=== PATIENT | female | born 1930 | race Caucasian/White ===

== ENCOUNTER 2017-12-17 14:46 | Inpatient (IN) | payer OTHER ==
--- NOTE | 2017-12-17 16:29 | PDOC ---
History of Present Illness <Kade Thomas - Last Filed: 12/17/17 16:43> - History of Present Illness Initial Comments: 12/17/17 16:31 "The patient is a 87 year old female, with a significant past medical history of hypothyroidism, GERD, alzheimers disease, chronic low back pain, who presents to the emergency department with, acutely worsening lower back pain yesterday. The patient states she was seen at [facility] for this problem yesterday and had a CT scan which showed small and limited compression fracture of L2. The patient describes the lower back pain as constant, non radiating, waxing and waning, and rated 9/10 in intensity. She denies any recent trauma or falls. She denies any numbness, weakness or tingling. Pt states that she felt better after receiving pain medication yesterday and was able to ambulate. However, due to the snowstorm she was unable to fill her prescription and has not taken anything for the pain today. She states that she is completely unable to stand on her own due to pain. Denies leg weakness/numbness. Denies incontinence of bowel or bladder. No saddle anesthesia. Pt was seen by Dr. Lara in his office today, and given her degree of pain and severe limitation to her mobility, he recommended pt be admitted for placement in rehab facility. Of note, pt also complaining of diffuse abdominal pain that started 1 week ago. She denies F/C. Denies N/V/D. States that the pain is constant. Denies CP/SOB. Allergies: levofloxacin, vancomycin, Penicillins Primary Care Physician: Dr. Niki Duarte Orthopedist: Dr. Lara <Bennie Huffman - Last Filed: 12/20/17 09:17> - General Chief Complaint: Pain Stated Complaint: BACK, NECK, LEG PAIN Time Seen by Provider: 12/17/17 14:55 Past History <Kade Thomas - Last Filed: 12/17/17 16:43> - Past Medical History Cardiac Disorders: Yes (PPM MAY 2016) COPD: No HTN: Yes Hypercholesterolemia: Yes Thyroid Disease: Yes - Suicide/Smoking/Psychosocial Hx Smoking Status: Yes Smoking History: Never smoked Have you smoked in the past 12 months: No Number of Cigarettes Smoked Daily: 0 If you are a former smoker, when did you quit?: 20 YEARS AGO Hx Alcohol Use: No Drug/Substance Use Hx: No Substance Use Type: None <Bennie Huffman - Last Filed: 12/20/17 09:17> - Past Medical History Allergies/Adverse Reactions: Allergies Allergy/AdvReac Type Severity Reaction Status Date / Time levofloxacin [From Levaquin] Allergy Severe Lip Verified 12/17/17 15:14 Swelling vancomycin Allergy Severe Rash Verified 12/17/17 15:14 Penicillins Allergy Hives Verified 12/17/17 15:14 Home Medications: Ambulatory Orders Levothyroxine [Synthroid -] 75 mcg PO DAILY 09/01/14 Difluprednate [Durezol] 5 ml OP 12/16/17 Ketorolac Tromethamine [Toradol -] 10 mg PO TID #10 tablet 12/16/17 Memantine HCl/Donepezil HCl [Namzaric 28 mg-10 mg Capsule] 1 cap PO DAILY Nepafenac [Ilevro] 12/16/17 Pantoprazole Sodium 40 mg PO DAILY 12/16/17 Tobramycin 0.3% Ophth Soln [Tobrex Ophthalmic Solution -] 12/16/17 Vardenafil HCl [Levitra] 2.5 mg PO BID 12/16/17 Docusate Sodium [Colace -] 100 mg PO TID capsule 12/19/17 Psyllium [Metamucil (Sugar-Free) -] 5.85 gm PO BID packet 12/19/17 Review of Systems - Review of Systems Comments:: 12/17/17 16:38 "GENERAL/CONSTITUTIONAL: No fever or chills. No weakness. HEAD, EYES, EARS, NOSE AND THROAT: No change in vision. No ear pain or discharge. No sore throat. CARDIOVASCULAR: No chest pain or shortness of breath. RESPIRATORY: No cough, wheezing, or hemoptysis. GASTROINTESTINAL: + diffuse abdominal pain, No nausea, vomiting, diarrhea or constipation. GENITOURINARY: No dysuria, frequency, or change in urination. MUSCULOSKELETAL: +Lower back pain. No joint or muscle swelling or pain. No neck pain. SKIN: No rash NEUROLOGIC: No headache, vertigo, loss of consciousness, or change in strength/ sensation. ENDOCRINE: No increased thirst. No abnormal weight change. HEMATOLOGIC/LYMPHATIC: No anemia, easy bleeding, or history of blood clots. ALLERGIC/IMMUNOLOGIC: No hives or skin allergy. " <Bennie Huffman - Last Filed: 12/20/17 09:17> *Physical Exam - Vital Signs Last Vital Signs Temp Pulse Resp BP Pulse Ox 97.5 F L 61 18 154/82 100 12/17/17 14:46 12/17/17 14:46 12/17/17 14:46 12/17/17 14:46 12/17/17 14:46 <Kade Thomas - Last Filed: 12/17/17 16:43> - Vital Signs Last Vital Signs Temp Pulse Resp BP Pulse Ox 97.5 F L 61 18 154/82 100 12/17/17 14:46 12/17/17 14:46 12/17/17 14:46 12/17/17 14:46 12/17/17 14:46 - Physical Exam Comments: 12/17/17 16:38 "GENERAL: Awake, alert, and fully oriented, in no acute distress HEAD: No signs of trauma EYES: PERRLA, EOMI, sclera anicteric, conjunctiva clear ENT: Auricles normal inspection, hearing grossly normal, nares patent, oropharynx clear without exudates. Moist mucosa NECK: Nontender, no stepoffs, Normal ROM, supple, no lymphadenopathy, JVD, or masses LUNGS: Breath sounds equal, clear to auscultation bilaterally. No wheezes, and no crackles HEART: Regular rate and rhythm, normal S1 and S2, no murmurs, rubs or gallops ABDOMEN: Diffuse lower quadrant tenderness, normoactive bowel sounds. No guarding, no rebound. No masses EXTREMITIES: Normal range of motion, no edema. No clubbing or cyanosis. No cords, erythema, or tenderness NEUROLOGICAL: Cranial nerves II through XII intact. 5/5 strength and sensation in all extremities, Normal speech, normal gait, normal cerebellar function SKIN: Warm, Dry, normal turgor, no rashes or lesions noted. BACK: + midline TTP @ L2-L3, no stepoffs <Bennie Huffman - Last Filed: 12/20/17 09:17> ED Treatment Course - LABORATORY CBC & Chemistry Diagram: 12/19/17 07:30 12/19/17 07:30 - RADIOLOGY Radiology Studies Ordered: Category Date Time Status ABDOMEN & PELVIS CT WITH CONTR [CT] Stat CT Scan 12/17/17 16:00 Ordered <Bennie Huffman - Last Filed: 12/20/17 09:17> Medical Decision Making - Medical Decision Making 12/17/17 16:39 87 F with likely new compression fx in L spine diagnosed yesterday, presenting to ED with recurrent lower back pain as well as abdominal pain. Pt with no neuro deficits on exam to suggest cord compression or cauda equina. She has not been taking her prescribed toradol PO and is likely in pain due to under- medication. - PO percocet - Re-eval Pt's abdominal pain is of unclear etiology. Pt with bilateral lower quadrant tenderness. Will obtain CT scan to r/o colitis/diverticulitis/appendicitis. - Labs - CTAP Pt signed out to Dr. Chung at 7pm, pending CT scan and re-evaluation. <Bennie Huffman - Last Filed: 12/20/17 09:17> *DC/Admit/Observation/Transfer - Attestations Scribe Attestion: 12/17/17 16:43 Documentation prepared by Kade Thomas, acting as medical coding specialist for Bennie Huffman MD. <Kade Thomas - Last Filed: 12/17/17 16:43> - Attestations Physician Attestion: 12/20/17 09:17 I, Dr. Bennie Huffman MD, attest that this document has been prepared under my direction and personally reviewed by me in its entirety. I further attest, that it accurately reflects all work, treatment, procedures and medical decision -making performed by me. <Bennie Huffman - Last Filed: 12/20/17 09:17> Diagnosis at time of Disposition: Colonic obstruction Lumbar compression fracture Qualifiers: Encounter type: initial encounter Lumbar vertebra fracture level: L2 Fracture type: closed Qualified Code(s): S32.020A - Wedge compression fracture of second lumbar vertebra, initial encounter for closed fracture - Discharge Dispostion Condition at time of disposition: Stable
[2017-12-17 16:59] LABS: BASO % 1.4 % (0-2.0); EOS % 2.8 % (0-4.5); HEMATOCRIT 38.6 % (32.4-45.2); HEMOGLOBIN 13.1 GM/dl (10.7-15.3); LYMPH % 23.7 % (8-40); MCH 29.3 pg (25.7-33.7); MEAN CELL VOLUME 86.3 fl (80-96); MEAN PLT VOLUME 7.7 fl (7.5-11.1); MONO % 6.2 % (3.8-10.2); NEUT % 65.9 % (42.8-82.8); PLATELET COUNT 187 K/MM3 (134-434); RBC 4.47 M/mm3 (3.60-5.2); RDW 14.5 % (11.6-15.6); WHITE BLOOD COUNT 7.8 K/mm3 (4.0-10.8)
[2017-12-17 17:18] LABS: ALBUMIN 4.2 g/dl (3.5-5.0); ALK PHOS 82 U/L (32-92); ANION GAP 8 (8-16); BLOOD UREA NITROGEN 20 mg/dl (7-18); CALCIUM 9.2 mg/dl (8.4-10.2); CHLORIDE 97 mmol/L (98-107); CO2 25 mmol/L (22-28); CREATININE 1.1 mg/dl (0.6-1.3); GLUCOSE,RANDOM 87 mg/dl (74-106); POTASSIUM 4.1 mmol/L (3.5-5.1); SGOT/AST 23 U/L (10-42); SODIUM 130 mmol/L (136-145); TOT PROT 6.4 g/dl (6.4-8.3)
[2017-12-17 17:42] LABS: SGPT/ALT 8 U/L (10-40)
--- NOTE | 2017-12-17 19:58 | PDOC ---
*Physical Exam - Vital Signs Last Vital Signs Temp Pulse Resp BP Pulse Ox 97.5 F L 61 18 154/82 100 12/17/17 14:46 12/17/17 14:46 12/17/17 14:46 12/17/17 14:46 12/17/17 14:46 ED Treatment Course - LABORATORY CBC & Chemistry Diagram: 12/17/17 16:30 12/17/17 16:30 - ADDITIONAL ORDERS Additional order review: Laboratory Results 12/17/17 12/17/17 12/17/17 16:30 16:30 16:30 Sodium Potassium Chloride Carbon Dioxide Anion Gap BUN Creatinine Creat Clearance w eGFR Random Glucose Lactic Acid 0.9 Calcium Total Bilirubin AST ALT Alkaline Phosphatase Creatine Kinase 108 Troponin I < 0.03 Total Protein Albumin Lipase 12/17/17 12/17/17 16:30 16:30 Sodium 130 L Potassium 4.1 Chloride 97 L Carbon Dioxide 25 Anion Gap 8 BUN 20 H Creatinine 1.1 D Creat Clearance w eGFR 47.21 Random Glucose 87 Lactic Acid Calcium 9.2 Total Bilirubin 1.0 AST 23 D ALT 8 L Alkaline Phosphatase 82 D Creatine Kinase Troponin I Total Protein 6.4 Albumin 4.2 Lipase 105 12/17/17 16:30 RBC 4.47 MCV 86.3 MCHC 34.0 RDW 14.5 MPV 7.7 Neutrophils % 65.9 Lymphocytes % 23.7 Monocytes % 6.2 Eosinophils % 2.8 Basophils % 1.4 - Medications Given in the ED: ED Medications Discontinued Medications Generic Name Dose Route Start Last Admin Trade Name Freq PRN Reason Stop Dose Admin Oxycodone/Acetaminophen 1 combo 12/17/17 15:55 12/17/17 16:52 Percocet 5/325 - PO 12/17/17 15:56 1 combo ONCE ONE Administration Progress Note - Progress Note Progress Note: Abdominal/pelvic CT shows distention of colon ,7 cm (ascending and transverse) with gradual tapering of the descending and sigmoid colon. Low-grade partial colonic obstruction as interpreted by Dr. Weller of radiology staff. Results discussed with the patient and her family; patient does not have a physician who admits here. Case discussed with Dr. Velazquez of [facility] service. Patient will be admitted here on their service. *DC/Admit/Observation/Transfer Diagnosis at time of Disposition: Colonic obstruction Lumbar compression fracture Qualifiers: Encounter type: initial encounter Lumbar vertebra fracture level: L2 Fracture type: closed Qualified Code(s): S32.020A - Wedge compression fracture of second lumbar vertebra, initial encounter for closed fracture - Discharge Dispostion Condition at time of disposition: Stable Admit: Yes - Referrals - Patient Instructions - Post Discharge Activity
--- NOTE | 2017-12-17 21:22 | HP ---
CHIEF COMPLAINT: PCP: HISTORY OF PRESENT ILLNESS: ER course was notable for: (1) (2) (3) Recent Travel: PAST MEDICAL HISTORY: PAST SURGICAL HISTORY: Social History: Smoking: Alcohol: Drugs: Family History: Allergies levofloxacin [From Levaquin] Allergy (Severe, Verified 12/17/17 15:14) Lip Swelling vancomycin Allergy (Severe, Verified 12/17/17 15:14) Rash Penicillins Allergy (Verified 12/17/17 15:14) Hives HOME MEDICATIONS: Home Medications Medication Instructions Recorded Levothyroxine [Synthroid -] 75 mcg PO DAILY 09/01/14 Difluprednate [Durezol] 5 ml OP 12/16/17 Ketorolac Tromethamine [Toradol] 10 mg PO TID #10 tablet 12/16/17 Memantine HCl/Donepezil HCl 1 cap PO DAILY 12/16/17 [Namzaric 28 mg-10 mg Capsule] Nepafenac [Ilevro] 12/16/17 Pantoprazole Sodium 40 mg PO DAILY 12/16/17 Tobramycin 0.3% Ophth Soln [Tobrex 12/16/17 Ophthalmic Solution -] Vardenafil HCl [Levitra] 2.5 mg PO BID 12/16/17 REVIEW OF SYSTEMS CONSTITUTIONAL: Absent: fever, chills, diaphoresis, generalized weakness, malaise, loss of appetite, weight change HEENT: Absent: rhinorrhea, nasal congestion, throat pain, throat swelling, difficulty swallowing, mouth swelling, ear pain, eye pain, visual changes CARDIOVASCULAR: Absent: chest pain, syncope, palpitations, irregular heart rate, lightheadedness , peripheral edema RESPIRATORY: Absent: cough, shortness of breath, dyspnea with exertion, orthopnea, wheezing, stridor, hemoptysis GASTROINTESTINAL: Absent: abdominal pain, abdominal distension, nausea, vomiting, diarrhea, constipation, melena, hematochezia GENITOURINARY: Absent: dysuria, frequency, urgency, hesitancy, hematuria, flank pain, genital pain MUSCULOSKELETAL: Absent: myalgia, arthralgia, joint swelling, back pain, neck pain SKIN: Absent: rash, itching, pallor HEMATOLOGIC/IMMUNOLOGIC: Absent: easy bleeding, easy bruising, lymphadenopathy, frequent infections ENDOCRINE: Absent: unexplained weight gain, unexplained weight loss, heat intolerance, cold intolerance NEUROLOGIC: Absent: headache, focal weakness or paresthesias, dizziness, unsteady gait, seizure, mental status changes, bladder or bowel incontinence PSYCHIATRIC: Absent: anxiety, depression, suicidal or homicidal ideation, hallucinations. PHYSICAL EXAMINATION Vital Signs - 24 hr 12/17/17 12/17/17 14:46 20:18 Temperature 97.5 F L 98.1 F Pulse Rate 61 Pulse Rate [ 64 Left Apical] Respiratory 18 16 Rate Blood Pressure 154/82 Blood Pressure 147/65 [Right Arm] O2 Sat by Pulse 100 98 Oximetry (%) GENERAL: Awake, alert, and fully oriented, in no acute distress. HEAD: Normal with no signs of trauma. EYES: Pupils equal, round and reactive to light, extraocular movements intact, sclera anicteric, conjunctiva clear. No lid lag. EARS, NOSE, THROAT: Ears normal, nares patent, oropharynx clear without exudates. Moist mucous membranes. NECK: Normal range of motion, supple without lymphadenopathy, JVD, or masses. LUNGS: Breath sounds equal, clear to auscultation bilaterally. No wheezes, and no crackles. No accessory muscle use. HEART: Regular rate and rhythm, normal S1 and S2 without murmur, rub or gallop. ABDOMEN: Soft, nontender, not distended, normoactive bowel sounds, no guarding, no rebound, no masses. No hepatomegaly or splenomegaly. MUSCULOSKELETAL: Normal range of motion at all joints. No bony deformities or tenderness. No CVA tenderness. UPPER EXTREMITIES: 2+ pulses, warm, well-perfused. No cyanosis. No clubbing. No peripheral edema. LOWER EXTREMITIES: 2+ pulses, warm, well-perfused. No calf tenderness. No peripheral edema. NEUROLOGICAL: Cranial nerves II-XII intact. Normal speech. Normal gait. PSYCHIATRIC: Cooperative. Good eye contact. Appropriate mood and affect. SKIN: Warm, dry, normal turgor, no rashes or lesions noted, normal capillary refill. Laboratory Results - last 24 hr 12/17/17 12/17/17 12/17/17 16:30 16:30 16:30 WBC 7.8 D RBC 4.47 Hgb 13.1 Hct 38.6 MCV 86.3 MCH 29.3 MCHC 34.0 RDW 14.5 Plt Count 187 MPV 7.7 Neutrophils % 65.9 Lymphocytes % 23.7 Monocytes % 6.2 Eosinophils % 2.8 Basophils % 1.4 Sodium 130 L Potassium 4.1 Chloride 97 L Carbon Dioxide 25 Anion Gap 8 BUN 20 H Creatinine 1.1 D Creat Clearance w eGFR 47.21 Random Glucose 87 Lactic Acid Calcium 9.2 Total Bilirubin 1.0 AST 23 D ALT 8 L Alkaline Phosphatase 82 D Creatine Kinase Troponin I Total Protein 6.4 Albumin 4.2 Lipase 105 12/17/17 12/17/17 12/17/17 16:30 16:30 16:30 WBC RBC Hgb Hct MCV MCH MCHC RDW Plt Count MPV Neutrophils % Lymphocytes % Monocytes % Eosinophils % Basophils % Sodium Potassium Chloride Carbon Dioxide Anion Gap BUN Creatinine Creat Clearance w eGFR Random Glucose Lactic Acid 0.9 Calcium Total Bilirubin AST ALT Alkaline Phosphatase Creatine Kinase 108 Troponin I < 0.03 Total Protein Albumin Lipase ASSESSMENT/PLAN: Hospitalist Screening - Colonoscopy Questionnaire Colonoscopy Questionnaire: Colonoscopy Questionnaire
[2017-12-17] MEDS ORDERED: DEXTROSE 5%-0.45% SALINE 1,000 ML IV SCH (21:30)
[2017-12-17] MEDS: HEPARIN NA (PORCINE) 5,000 UNITS/ML 1ML VIAL SQ SCH (22:20)
[2017-12-17 23:05] VITALS: BMI 21.9
--- NOTE | 2017-12-18 08:20 | PN ---
Physical Exam: SUBJECTIVE: Patient seen and examined, patient reports feeling bloated, last BM was yesterday evening, no fluctance OBJECTIVE: patient is a 87 year old female, with a significant past medical history of hypothyroidism, GERD, alzheimers disease, chronic low back pain. Vital Signs Period Temp Pulse Resp BP Sys/Daly Pulse Ox Last 24 Hr 97.5 F-98.6 F 60-67 16-19 133-154/65-82 96-100 GENERAL: The patient is awake, alert, and fully oriented, in no acute distress. HEAD: Normal with no signs of trauma. EYES: PERRL, extraocular movements intact, sclera anicteric, conjunctiva clear. No ptosis. ENT: Ears normal, nares patent, oropharynx clear without exudates, moist mucous membranes. NECK: Trachea midline, full range of motion, supple. LUNGS: Breath sounds equal, clear to auscultation bilaterally, no wheezes, no crackles, no accessory muscle use. HEART: Regular rate and rhythm, S1, S2 without murmur, rub or gallop. ABDOMEN: Soft, slightly distended, diffuse abd tenderness, hypoactive bowel sounds, no guarding, no rebound, no hepatosplenomegaly, no masses. EXTREMITIES: 2+ pulses, warm, well-perfused, no edema. NEUROLOGICAL: Cranial nerves II through XII grossly intact. Normal speech, gait not observed. PSYCH: Normal mood, normal affect. SKIN: Warm, dry, normal turgor, no rashes or lesions noted Laboratory Results - last 24 hr 12/17/17 12/17/17 12/17/17 16:30 16:30 16:30 WBC 7.8 D RBC 4.47 Hgb 13.1 Hct 38.6 MCV 86.3 MCH 29.3 MCHC 34.0 RDW 14.5 Plt Count 187 MPV 7.7 Neutrophils % 65.9 Lymphocytes % 23.7 Monocytes % 6.2 Eosinophils % 2.8 Basophils % 1.4 Sodium 130 L Potassium 4.1 Chloride 97 L Carbon Dioxide 25 Anion Gap 8 BUN 20 H Creatinine 1.1 D Creat Clearance w eGFR 47.21 Random Glucose 87 Lactic Acid Calcium 9.2 Total Bilirubin 1.0 AST 23 D ALT 8 L Alkaline Phosphatase 82 D Creatine Kinase Troponin I Total Protein 6.4 Albumin 4.2 Lipase 105 12/17/17 12/17/17 12/17/17 16:30 16:30 16:30 WBC RBC Hgb Hct MCV MCH MCHC RDW Plt Count MPV Neutrophils % Lymphocytes % Monocytes % Eosinophils % Basophils % Sodium Potassium Chloride Carbon Dioxide Anion Gap BUN Creatinine Creat Clearance w eGFR Random Glucose Lactic Acid 0.9 Calcium Total Bilirubin AST ALT Alkaline Phosphatase Creatine Kinase 108 Troponin I < 0.03 Total Protein Albumin Lipase Active Medications Generic Name Dose Route Start Last Admin Trade Name Freq PRN Reason Stop Dose Admin Heparin Sodium (Porcine) 5,000 unit 12/17/17 22:00 12/17/17 22:20 Heparin - SQ 5,000 unit BID AD Administration Dextrose/Sodium Chloride 1,000 mls @ 42 mls/hr 12/17/17 21:30 12/17/17 23:20 D5-1/2ns - IV 42 mls/hr ASDIR AD Administration IMAGING CT of abd/pelvis w contrast: mild distention of the ascending and transverse colon measuring up to 7cm in diameter with gradual tapering of the descending and sigmoid colon, low grade colonic obstruction, as per the radiologist Dr Sotomayor CT lumbar spine: moderate chronic L1 vertebral body compression fracture with minimal bony retropulsion, canal stenosis of l3-l4 and l4-l5. ASSESSMENT/PLAN: 1) GI partial sbp - abd xray reviewed with Dr Thomas, no sbo noted, dilated loops of bowel, start clear liquids with bowel regimen - avoid narcotic pain mediation. gerd -continue protonix 2) ms lumbar compression fracture - creatine wnl, continue toradol - will need outpatient follow up with Dr Lara (ortho) - pending physcial therapy eval 3) endo hyptothyroidism - continue levothyroine home f/e/n -clear liquid diet - ivf ppx -heparin -protonix - scd dispo: patient requires inpatient admission Visit type - Emergency Visit Emergency Visit: Yes ED Registration Date: 12/17/17 Care time: The patient presented to the Emergency Department on the above date and was hospitalized for further evaluation of their emergent condition. - New Patient This patient is new to me today: No - Critical Care Critical Care patient: No - Discharge Referral Referred to [facility] Med P.C.: No
[2017-12-18 08:57] LABS: ANION GAP 7 (8-16); BLOOD UREA NITROGEN 15 mg/dl (7-18); CALCIUM 8.7 mg/dl (8.4-10.2); CHLORIDE 100 mmol/L (98-107); CO2 24 mmol/L (22-28); CREATININE 0.8 mg/dl (0.6-1.3); GLUCOSE,RANDOM 78 mg/dl (74-106); POTASSIUM 3.6 mmol/L (3.5-5.1); SODIUM 131 mmol/L (136-145)
[2017-12-18 09:04] LABS: BASO % 1.4 % (0-2.0); EOS % 3.6 % (0-4.5); HEMATOCRIT 37.2 % (32.4-45.2); HEMOGLOBIN 12.9 GM/dl (10.7-15.3); LYMPH % 22.2 % (8-40); MCH 30.3 pg (25.7-33.7); MCHC 34.7 g/dl (32.0-36.0); MEAN CELL VOLUME 87.4 fl (80-96); MEAN PLT VOLUME 7.4 fl (7.5-11.1); NEUT % 65.8 % (42.8-82.8); PLATELET COUNT 185 K/MM3 (134-434); RBC 4.26 M/mm3 (3.60-5.2); RDW 14.1 % (11.6-15.6); WHITE BLOOD COUNT 5.7 K/mm3 (4.0-10.8)
[2017-12-18] MEDS: HEPARIN NA (PORCINE) 5,000 UNITS/ML 1ML VIAL SQ SCH ×2 (10:00→21:30)
[2017-12-18] MEDS ORDERED: SODIUM CHLORIDE 0.9%/KCL 20 MEQ/1,000 ML INFUS.BAG IV SCH (11:00)
--- NOTE | 2017-12-18 12:30 | CONSULT ---
- Consultation REQUESTING PROVIDER: Nela CONSULT REQUEST: We have been asked to surgically evaluate this patient for abdominal pain ? and distention PCP:Zainab Tarango HISTORY OF PRESENT ILLNESS: VANDANA who is an 87 y/o white female w/# comorbid medical conditions including lowback pain who was admitted w/same and abdominal distention; she has had this for 1-2 weeks a/t her [employer]; she was txed and released from the [facility] last week and from w/in the last 48 hours forthe same problem and for LBP; no h/o abdominal surgery; she had a bowel movement the other day and was passing gas; NOC . She ? has a new fx in her l/s spine. PMHx: htn; Alzheimers; DJD of the l/s spine; thyroid disease PSHx: b/l hip surgery; no abdominal surgery Home Medications Medication Instructions Recorded Levothyroxine [Synthroid -] 75 mcg PO DAILY 09/01/14 Difluprednate [Durezol] 5 ml OP 12/16/17 Ketorolac Tromethamine [Toradol] 10 mg PO TID #10 tablet 12/16/17 Memantine HCl/Donepezil HCl 1 cap PO DAILY 12/16/17 [Namzaric 28 mg-10 mg Capsule] Nepafenac [Ilevro] 12/16/17 Pantoprazole Sodium 40 mg PO DAILY 12/16/17 Tobramycin 0.3% Ophth Soln [Tobrex 12/16/17 Ophthalmic Solution -] Vardenafil HCl [Levitra] 2.5 mg PO BID 12/16/17 Allergies Allergy/AdvReac Type Severity Reaction Status Date / Time levofloxacin [From Levaquin] Allergy Severe Lip Verified 12/17/17 15:14 Swelling vancomycin Allergy Severe Rash Verified 12/17/17 15:14 Penicillins Allergy Hives Verified 12/17/17 15:14 PHYSICAL EXAM: GENERAL: Awake, alert, and fully oriented, in acute distress due to LBP. HEAD: Normal with no signs of trauma. EYES: PERRL, sclera anicteric, conjunctiva clear. NECK: Normal ROM, supple without lymphadenopathy, JVD, or masses. ABDOMEN: Soft, nontender, minimally distended and tympanitic sluggish active bowel sounds, no guarding, no rebound, no masses. No organomegaly. Umbilical hernia is present and reducible. RECTAL: GST; no mass; stool is present UPPER EXTREMITIES: 2+ pulses, warm, well-perfused. No cyanosis. Cap refill <2 seconds. No peripheral edema. LOWER EXTREMITIES: 2+ pulses, warm, well-perfused. No calf tenderness. No peripheral edema. NEUROLOGICAL: Normal speech, gait not observed. PSYCH: Cooperative. Good eye contact. Appropriate mood and affect. SKIN: Warm, dry, normal turgor, no rashes or lesions noted. Vital Signs Temperature 98.6 F 12/18/17 04:00 Pulse Rate 60 12/18/17 04:00 Respiratory Rate 19 12/18/17 09:00 Blood Pressure 133/70 12/18/17 04:00 O2 Sat by Pulse Oximetry (%) 96 12/18/17 09:00 Lab Results WBC 5.7 K/mm3 (4.0-10.8) 12/18/17 07:30 RBC 4.26 M/mm3 (3.60-5.2) 12/18/17 07:30 Hgb 12.9 GM/dl (10.7-15.3) 12/18/17 07:30 Hct 37.2 % (32.4-45.2) 12/18/17 07:30 MCV 87.4 fl (80-96) 12/18/17 07:30 MCHC 34.7 g/dl (32.0-36.0) 12/18/17 07:30 RDW 14.1 % (11.6-15.6) 12/18/17 07:30 Plt Count 185 K/MM3 (134-434) 12/18/17 07:30 Sodium 131 mmol/L (136-145) L 12/18/17 07:30 Potassium 3.6 mmol/L (3.5-5.1) 12/18/17 07:30 Chloride 100 mmol/L (98-107) 12/18/17 07:30 Carbon Dioxide 24 mmol/L (22-28) 12/18/17 07:30 Anion Gap 7 (8-16) L 12/18/17 07:30 BUN 15 mg/dl (7-18) D 12/18/17 07:30 Creatinine 0.8 mg/dl (0.6-1.3) D 12/18/17 07:30 Random Glucose 78 mg/dl (74-106) 12/18/17 07:30 Calcium 8.7 mg/dl (8.4-10.2) 12/18/17 07:30 CT scan a/p reviewed and AXR;s reviewed IMP:ileus from ? pain meds and/or lumbar fx; no evidence of an acute surgical abdomen PLAN: Advise trial of clear liquids and advance as tolerated; colace/metamucil; avoid narcotic pain meds; when improved GI evaluationj for colonoscopy. Bennie Thomas MD FACS Visit type - Case Type Case Type: ED Admission - Emergency Emergency Visit: Yes ED Registration Date: 12/17/17 Care time: The patient presented to the Emergency Department on the above date and was hospitalized for further evaluation of their emergent condition. - New patient This patient is new to me today: Yes Date on this admission: 12/18/17 - Critical Care Critical Care patient: No
[2017-12-18] MEDS ORDERED: KETOROLAC TROMETHAMINE 10 MG TABLET PO PRN (13:24)
[2017-12-18] MEDS ORDERED: ACETAMINOPHEN 325 MG TABLET (FP) PO PRN (13:57)
[2017-12-18] MEDS: PSYLLIUM 5.85 GM PACKET PO SCH ×2 (14:20→21:30)
[2017-12-18] MEDS: DOCUSATE SODIUM 100 MG CAPSULE (FP) PO SCH ×2 (15:20→21:30)
[2017-12-19] MEDS: DOCUSATE SODIUM 100 MG CAPSULE (FP) PO SCH ×2 (06:11→21:23)
[2017-12-19] MEDS ORDERED: LEVOTHYROXINE NA 112 MCG TABLET (FP) PO SCH (07:00)
[2017-12-19 08:30] LABS: BASO % 1.4 % (0-2.0); HEMATOCRIT 35.3 % (32.4-45.2); HEMOGLOBIN 12.1 GM/dl (10.7-15.3); LYMPH % 29.2 % (8-40); MCH 29.8 pg (25.7-33.7); MCHC 34.3 g/dl (32.0-36.0); MEAN CELL VOLUME 86.8 fl (80-96); MEAN PLT VOLUME 7.3 fl (7.5-11.1); NEUT % 57.4 % (42.8-82.8); PLATELET COUNT 164 K/MM3 (134-434); RBC 4.07 M/mm3 (3.60-5.2); WHITE BLOOD COUNT 4.1 K/mm3 (4.0-10.8)
[2017-12-19 09:04] LABS: ANION GAP 5 (8-16); BLOOD UREA NITROGEN 11 mg/dl (7-18); CALCIUM 8.4 mg/dl (8.4-10.2); CHLORIDE 105 mmol/L (98-107); CO2 23 mmol/L (22-28); CREATININE 0.8 mg/dl (0.6-1.3); GLUCOSE,RANDOM 81 mg/dl (74-106); PHOSPHOROUS 3.4 mg/dl (2.5-4.6); SODIUM 133 mmol/L (136-145)
[2017-12-19] MEDS: PANTOPRAZOLE 40 MG TABLET (FP) PO SCH (09:56)
[2017-12-19] MEDS: PSYLLIUM 5.85 GM PACKET PO SCH ×2 (09:56→21:23)
[2017-12-19] MEDS: ROSUVASTATIN CA 10 MG TABLET (FP) PO SCH (09:56)
[2017-12-19] MEDS: HEPARIN NA (PORCINE) 5,000 UNITS/ML 1ML VIAL SQ SCH ×2 (09:57→21:23)
[2017-12-19] MEDS ORDERED: PATIENT'S OWN MEDICATION (NON-FORMULARY) (Memantine Hcl/Donepezil Hcl [Namzaric 28 Mg-10 M PO SCH (10:00)
--- NOTE | 2017-12-19 12:12 | DS ---
Physical Exam: SUBJECTIVE: Patient seen and examined, sitting in bedside chair tolerating soft diet. OBJECTIVE: patient is a 87 year old female, with a significant past medical history of hypothyroidism, GERD, alzheimers disease, chronic low back pain. Patient was admitted from the emergency department for a partial SBO. Vital Signs Period Temp Pulse Resp BP Sys/Daly Pulse Ox Last 24 Hr 97.8 F-98.7 F 62-67 18-19 122-154/74-85 94-97 PHYSICAL EXAM GENERAL: The patient is awake, alert, and fully oriented, in no acute distress. HEAD: Normal with no signs of trauma. EYES: PERRL, extraocular movements intact, sclera anicteric, conjunctiva clear. ENT: Ears normal, nares patent, oropharynx clear without exudates, moist mucous membranes. NECK: Trachea midline, full range of motion, supple. LUNGS: Breath sounds equal, clear to auscultation bilaterally, no wheezes, no crackles, no accessory muscle use. HEART: Regular rate and rhythm, S1, S2 without murmur, rub or gallop. ABDOMEN: Soft, nontender, nondistended, normoactive bowel sounds, no guarding, no rebound, no hepatosplenomegaly, no masses. EXTREMITIES: 2+ pulses, warm, well-perfused, no edema. NEUROLOGICAL: Cranial nerves II through XII grossly intact. Normal speech, ambulated independently with walker. PSYCH: Normal mood, normal affect. SKIN: Warm, dry, normal turgor, no rashes or lesions noted. LABS Laboratory Results - last 24 hr 12/19/17 12/19/17 07:30 07:30 WBC 4.1 RBC 4.07 Hgb 12.1 Hct 35.3 MCV 86.8 MCH 29.8 MCHC 34.3 RDW 14.0 Plt Count 164 MPV 7.3 L Neutrophils % 57.4 Lymphocytes % 29.2 Monocytes % 8.0 Eosinophils % 4.0 Basophils % 1.4 Sodium 133 L Potassium 4.0 Chloride 105 Carbon Dioxide 23 Anion Gap 5 L BUN 11 D Creatinine 0.8 Random Glucose 81 Calcium 8.4 Phosphorus 3.[address] of abd/pelvis w contrast: mild distention of the ascending and transverse colon measuring up to 7cm in diameter with gradual tapering of the descending and sigmoid colon, low grade colonic obstruction, as per the radiologist Dr Sotomayor CT lumbar spine: moderate chronic L1 vertebral body compression fracture with minimal bony retropulsion, canal stenosis of l3-l4 and l4-l5. HOSPITAL COURSE: Patient was admitted from the emergency department for a partial sbo, repeat abdominal xray (flat/upright) resulted as dilated loops of bowel. Patient was started on clear liquid diet on hospital day 1 then advanced to a soft diet. Patient tolerated soft diet. Protonix was continued throughout admission. patient was noted to have a lumbar compression fracture upon review of ct scan. Toradol was continued for pain, creatine wnl. Patient will need outpatient follow up with Dr Lara (ortho). patient has a past medical history of hyptothyroidism, levothyroine was continued. PLAN - discharge to SNF, short term rehab - soft diet - continue all medications as prescribed Date of Admission:12/17/17 Date of Discharge: 12/19/17 Minutes to complete discharge: 45 Discharge Summary Reason For Visit: SBO Current Active Problems Colonic obstruction (Acute) Lumbar compression fracture (Acute) Condition: Stable - Instructions Referrals: Nkii Duarte [Primary Care Provider] - Polo Mercado MD [Staff Physician] - Bala Pena MD [Staff Physician] - - Home Medications Comprehensive Discharge Medication List: Ambulatory Orders Levothyroxine [Synthroid -] 75 mcg PO DAILY 09/01/14 Difluprednate [Durezol] 5 ml OP 12/16/17 Ketorolac Tromethamine [Toradol] 10 mg PO TID #10 tablet 12/16/17 Memantine HCl/Donepezil HCl [Namzaric 28 mg-10 mg Capsule] 1 cap PO DAILY Nepafenac [Ilevro] 12/16/17 Pantoprazole Sodium 40 mg PO DAILY 12/16/17 Tobramycin 0.3% Ophth Soln [Tobrex Ophthalmic Solution -] 12/16/17 Vardenafil HCl [Levitra] 2.5 mg PO BID 12/16/17 This patient is new to me today: Yes Date on this admission: 12/20/17 Emergency Visit: Yes ED Registration Date: 12/17/17 Care time: The patient presented to the Emergency Department on the above date and was hospitalized for further evaluation of their emergent condition. Critical Care patient: No - Discharge Referral Referred to [facility] No
--- NOTE | 2017-12-19 13:04 | EKG ---
Test Reason : Blood Pressure : / mmHG Vent. Rate : 060 BPM Atrial Rate : 037 BPM P-R Int : 000 ms QRS Dur : 170 ms QT Int : 496 ms P-R-T Axes : 000 009 070 degrees QTc Int : 496 ms AV dual-paced rhythm ABNORMAL ECG NO PREVIOUS ECGS AVAILABLE Confirmed by TANYA FINN, YONAS ([id number]) on 12/19/2017 1:04:00 PM Referred By: BRICE Confirmed By:YONAS MARTÍNEZ MD
[2017-12-20] MEDS ORDERED: PT OWN MED DRAWER 7, Y5N ONE (03:48)
[2017-12-20] MEDS: DOCUSATE SODIUM 100 MG CAPSULE (FP) PO SCH ×2 (06:27→09:33)
[2017-12-20] MEDS ORDERED: LEVOTHYROXINE NA 75 MCG TABLET (FP) PO SCH (06:37)
[2017-12-20 06:41] VITALS: BP 138/71; PULSE 60; TEMP 98.1
[2017-12-20] MEDS: ROSUVASTATIN CA 10 MG TABLET (FP) PO SCH (09:32)
[2017-12-20] MEDS: HEPARIN NA (PORCINE) 5,000 UNITS/ML 1ML VIAL SQ SCH (09:33)
[2017-12-20] MEDS: PSYLLIUM 5.85 GM PACKET PO SCH (09:33)
[2017-12-20] MEDS: PANTOPRAZOLE 40 MG TABLET (FP) PO SCH (09:33)
== END 2017-12-20 11:30 | DRG 552 ==
LOC: FER 14:46 → SUPCPDRO 14:46 → FM/S 20:47
PROVIDERS: ADMIT Internal Medicine; ATTEND Nurse Practitioner Family
DX: S32.020A Wedge compression fracture of second lumbar vertebra, initial encounter for closed fracture (principal); K56.609 Unspecified intestinal obstruction, unspecified as to partial versus complete obstruction; K21.9 Gastro-esophageal reflux disease without esophagitis; E03.9 Hypothyroidism, unspecified; T14.90XA Injury, unspecified, initial encounter; X58.XXXA Exposure to other specified factors, initial encounter; Y93.9 Activity, unspecified; Y92.9 Unspecified place or not applicable; Y99.9 Unspecified external cause status; G30.9 Alzheimer's disease, unspecified; F02.80 Dementia in other diseases classified elsewhere, unspecified severity, without behavioral disturbance, psychotic disturbance, mood disturbance, and anxiety
CPT/HCPCS: 36415; 71045-TC-FY; 72131-TC; 74019-TC-FY; 74177-TC; 80048; 80053; 82550; 83605; 83690; 83735; 84100; 84484; 85025; 93005; 97116-GP; 97161-GP; 99282-25; 99285-25; J1644